=== PATIENT | male | born 1980 | race Caucasian/White ===

== ENCOUNTER 2019-03-03 19:29 | Emergency (ER) | payer MEDICAID ==
[2019-03-03] MEDS: DEXAMETHASONE 10 MG/ML 1 ML INJ IM (21:06)
[2019-03-03] MEDS: KETOROLAC 60 MG INJ IM (21:06)
== END 2019-03-03 21:24 | disposition home or self-care (01) ==
LOC: FTE 21:24
DX: M72.2 Plantar fascial fibromatosis (principal)
CPT/HCPCS: 96372; 99284-25